=== PATIENT | female | born 1995 | race American Indian/Alaskan Native ===

== ENCOUNTER → 2023-08-20 12:02 | Outpatient (CLI) | payer OTHER, SELFPAY ==
[2023-08-22 20:31] LABS: AFP Value 65.7 ng/mL (.); Gest Age on Col Date 16.6 weeks (.); Insulin Dep Diabetes No (.); OSBR Risk 1IN 1218 (.); Results Report (.); Test Results *Screen Negative* (.)
== END ==
PROVIDERS: PCP Family Medicine; Referring Provider Family Medicine; Visit Provider Family Medicine
DX: Z34.00 Encounter for supervision of normal first pregnancy, unspecified trimester (principal)
CPT/HCPCS: 36415; 82105

== ENCOUNTER → 2023-09-10 11:57 | Outpatient (CLI) | payer OTHER, SELFPAY ==
--- NOTE | 2023-09-10 11:58 | DI.US.S_ITS ---
PROCEDURE: US OB >= 14 WEEKS FETUS INDICATIONS: anatomy OUTSIDE/PRIOR DATING DATA: Last menstrual period (LMP): 04/26/23. LMP-based estimated date of delivery (MARLEY): 01/31/24. First dating scan (date and location): Not available. Estimated date of delivery (MARLEY) from first dating scan: Not applicable. The calculations are made using the clinical MARLEY of 01/31/24. TECHNIQUE: Real-time scanning was performed of the fetus, with image documentation and biometric measurements. Endovaginal scanning: Not performed COMPARISON: None. FINDINGS: General: A single living intrauterine gestation is present. Presentation: Vertex. Placenta: Placental position is posterior , without previa. Amniotic fluid index: 9.6 cm, normal range is 5-24 cm. Single deepest vertical pocket is 3.1 cm. heart rate: 135 beats per minute. Maternal cervical canal: Closed and 3.0 cm long. Normal lower limit is 2.5 cm. biometrics: Biparietal diameter: 4.2 cm, 18 weeks four days Head circumference: 16.3 cm, 19 weeks one day Abdominal circumference: 13.9 cm, 19 weeks two days Femur length: 2.7 cm, 18 weeks 0 days Clinically estimated gestational age: 19 weeks four days Composite gestational age from present scan: 18 weeks five days Estimated weight and percentile: 255 g, 10th percentile Anatomic survey: Neuro: Ventricles are non-dilated at less than 10 mm. Cisterna magna is normal at 3-11 mm. Cerebellum is normal in size and morphology. Nuchal skin fold: Normal at less than 6 mm between 14-21 weeks gestational age. Face: Nose and lips, facial profile are normal. Spine: No evidence for spina bifida. Heart: 4-chambered heart is present, with normal ventricular outflow tracts. Diaphragm: Diaphragm is intact. Stomach: Left-sided stomach is present. Kidneys: No hydronephrosis. Normal is less than 5 mm in 2nd trimester, less than 7 mm in 3rd trimester. Cord: 3-vessel cord has orthotopic insertion. Bladder: Normal in size. Extremities: All 4 extremities identified. IMPRESSION: Single living intrauterine with a composite gestational age of 18 weeks five days, six days behind clinical age. Estimated weight at the 10th percentile. Slightly short femur, otherwise fairly symmetric growth. Correlate with parental stature. Visualized anatomy is normal. We strive to produce accurate, complete, and clear reports of imaging services. To assist us in improving patient care, this report was composed using standard report templates and voice recognition software. Therefore, it may contain abnormal punctuation, insertions and/or omissions. Occasional wrong-word or sound-alike substitutions may occur. Though we review the report and make efforts to correct it, we do recommend that the report be read carefully in proper context to recognize any text inaccuracies. Dictated by: Nemo Barrios M.D. on 09/10/2023 at 13:39 Approved by: Nemo Barrios M.D. on 09/10/2023 at 13:48
== END ==
PROVIDERS: PCP Family Medicine; Referring Provider Family Medicine; Visit Provider Family Medicine
DX: Z34.02 Encounter for supervision of normal first pregnancy, second trimester (principal); Z3A.18 18 weeks gestation of pregnancy
CPT/HCPCS: 76811

== ENCOUNTER → 2023-10-29 13:09 | Outpatient (CLI) | payer OTHER, SELFPAY ==
--- NOTE | 2023-10-29 13:10 | DI.US.S_ITS ---
PROCEDURE: US OB LIMITED INDICATIONS: EFW OUTSIDE/PRIOR DATING DATA: Last menstrual period (LMP): 04/26/2023. LMP-based estimated date of delivery (MARLEY): 01/31/2024. TECHNIQUE: Real-time scanning was performed of the fetus, with image documentation and biometric measurements. Biophysical profile was also obtained. Endovaginal scanning: No COMPARISON: None. FINDINGS: General: A single living intrauterine gestation is present. Presentation: Vertex. Placenta: Placental position is posterior , without previa. Amniotic fluid index: 17.4 cm, normal range is 5-24 cm. Single deepest vertical pocket is 5.1 cm. heart rate: 153 beats per minute. Maternal cervical canal: 3.3 cm long. Normal lower limit is 2.5 cm. biometrics: Biparietal diameter: 6.5 cm, 26 week 1 day Head circumference: 24.3 cm, 26 week 3 day Abdominal circumference: 22.1 cm, 26 week 4 day Femur length: 4.8 cm, 26 week 1 day Clinically estimated gestational age: 26 week 4 day Composite gestational age from present scan: 26 week 2 day Estimated weight and percentile: 929 g, 31 percentile IMPRESSION: Single live intrauterine consistent with a 26 week 2 day gestation by current ultrasound Approved by: Micha Burton M.D. on 10/29/2023 at 16:44
== END ==
PROVIDERS: PCP Family Medicine; Referring Provider Family Medicine; Visit Provider Family Medicine
DX: O36.5920 Maternal care for other known or suspected poor fetal growth, second trimester, not applicable or unspecified (principal); Z3A.26 26 weeks gestation of pregnancy
CPT/HCPCS: 76815

== ENCOUNTER → 2023-11-21 12:01 | Outpatient (CLI) | payer OTHER, SELFPAY ==
[2023-11-21 13:57] LABS: Add Manual Diff / Slide Review NO; Basophils Absolute Auto 0 /uL (0-100); Basophils Percent Auto 0.4 % (0-2); Eosinophils Absolute Auto 100 /uL (0-450); Eosinophils Percent Auto 0.9 % (2-4); Hemoglobin 10.9 g/dL (12.0-16.0); Lymphocytes Absolute Auto 1900 /uL (1100-4500); Lymphocytes Percent Auto 17.1 % (25-40); Mean Corpuscular Hemoglobin 31.1 PG (26-34); Mean Corpuscular Volume 91.4 fL (80-100); Monocytes Absolute Auto 600 /uL (0-900); Monocytes Percent Auto 5.8 % (3-14); Neutrophils Absolute Auto 8400 /uL (1500-7000); Neutrophils Percent Auto 75.8 % (50-75); Platelet Count 242 X10^3/uL (150-400); Red Blood Cell Count 3.51 X10^6/uL (4.0-5.2); Red Cell Distribution Width 14.1 % (11.6-14.8)
[2023-11-21 14:20] LABS: GTT (PREG) 1 Hour PP 50gm Dose 126 mg/dL (76-139)
== END ==
PROVIDERS: Referring Provider Family Medicine; Visit Provider Family Medicine
DX: Z34.00 Encounter for supervision of normal first pregnancy, unspecified trimester (principal)
CPT/HCPCS: 82950; 85025; 86850

== ENCOUNTER 2023-12-03 07:26 | Emergency (ER) | payer OTHER, SELFPAY ==
[2023-12-03 07:35] VITALS: BP 141/78; PULSE 88; RESP 16; TEMP 36.6; O2SAT 98; BMI 31.3
--- NOTE | 2023-12-03 07:56 | ED_ITS ---
HPI - Back Pain/Injury General Chief Complaint: Back Pain/Injury Stated Complaint: pain right glute/leg Time Seen by Provider: 12/03/23 07:49 Source: patient History of Present Illness HPI Narrative: Patient here for right gluteal pain for the past 3 days. It started about 2 weeks ago but worsened over the weekend. Has been taking Tylenol without relief. Denies any urinary complaints. No numbness tingling or weakness. Pain does not radiate. There is no hip pain. Pain is at the right side of the sacroiliac junction. Patient is [address] Valencia, OBGYN/family Medicine. She is being monitored for her blood pressure with prov ider. Blood pressure noted today at triage. Component may be pain related as well. Patient is . Denies any chest pain headache urinary changes, toe right upper quadrant pain Related Data Previous Rx's Medication Instructions Recorded vit no.95-ferrous 1 tab PO DAILY #90 tabs 08/17/23 fumarate 28 mg-folic acid 800 mcg tablet ( Multivitamins) cyclobenzaprine 5 mg tablet 5 mg PO BID PRN muscle spasm #20 12/03/23 tabs Allergies Allergy/AdvReac Type Severity Reaction Status Date / Time No Known Drug Allergies Allergy Unverified 12/03/23 07:40 Review of Systems Review of Systems Narrative: GENERAL: negative chills, fatigue, malaise, fever, sweats. HEENT: negative sinus pain, ear pain, sore throat RESPIRATORY: negative dyspnea, cough CARDIOVASCULAR: negative chest pain, palpitations GASTROINTESTINAL: negative nausea, vomiting, abdominal pain : negative dysuria, frequency, hematuria MUSCULOSKELETAL: Positive muscle or bony pain SKIN: negative rash, skin lesions NEUROLOGIC: negative weakness, numbness Patient History Medical History IUD complication (~08/2022) Dental crown present Migraine without aura Surgical History [place] teeth extracted Family History Mother Diabetes mellitus Father Hypertension Grandmother Ovarian cancer Family/Other Diabetes mellitus Social History marital status: number of children: 0 household members: spouse lives independently: Yes caregiver/support person: No housing: other (RV) pets and animals: Yes (1 large dog) education level: college (some college) occupational status: employed current occupational exposures/hazards: No (not since learning of ) special karen needs: No travel history: recent (domestic only) seatbelt use: always water heater temp set < 120 deg: Yes working smoke detector in home: Yes fire extinguisher in home: Yes carbon monox detector in home: Yes firearms in home: Yes firearms unloaded and locked: Yes do you feel safe at home: Yes Smoking Status: Former smoker Tobacco: How many years used: 3 second hand exposure: No alcohol intake: never substance use type: does not use during the past year weight has: remained stable well-balanced diet: rarely or never daily servings fruits/ve-1 caffeine: No Type(s) of exercise: walking and weight lifting Smoking Status: Former smoker Substance Use Type: does not use Exam Narrative Exam Narrative: GENERAL: in no distress, not toxic not dyspneic HEAD: Normocephalic. EYES: Pupils equal round ENT: Mucous membranes moist. NECK: Trachea midline. CARDIOVASCULAR: Regular rate and rhythm RESPIRATORY: Clear to auscultation. Breath sounds equal bilaterally. No wheezes, rales, or rhonchi. GASTROINTESTINAL: Abdomen soft, non-tender EXTREMITIES: No gross deformities. Reproducible sacral tenderness on the right side. Nontender hip. Sacral pain with straight leg raise on the left as well as the right. In supine position BACK: No flank tenderness. NEURO: AOx4. Clear speech no facial droop. Steady self gait no ataxia. Strong bilateral patellar reflexes light touch intact to bilateral legs and feet. Feet are exposed. Strong bilateral ankle flexion-extension SKIN: Warm and dry PSYCH: Not anxious, is cooperative Initial Vital Signs Initial Vital Signs: Vital Signs Temperature 97.8 F 12/03/23 07:35 Pulse Rate 88 12/03/23 07:35 Respiratory Rate 16 12/03/23 07:35 Blood Pressure 141/78 H 12/03/23 07:35 Pulse Oximetry 98 12/03/23 07:35 Oxygen Delivery Method Room Air 12/03/23 07:35 Course Vital Signs Vital signs: Vital Signs - 8 hr 12/03/23 07:35 12/03/23 08:00 Temperature 97.8 F Pulse Rate 88 Respiratory Rate 16 Blood Pressure 141/78 H 136/67 Pulse Oximetry 98 Oxygen Delivery Method Room Air MDM - Back Pain/Injury [facility] Narrative Medical decision making narrative: atient here for right gluteal pain for the past 3 days. It started about 2 weeks ago but worsened over the weekend. Has been taking Tylenol without relief. Denies any urinary complaints. No numbness tingling or weakness. Pain does not radiate. There is no hip pain. Pain is at the right side of the sacroiliac junction. Patient is [address] Valencia, OBGYN/family Medicine. She is being monitored for her blood pressure with provider. Blood pressure noted today at triage. Component may be pain related as well. Patient denies any chest pain headache urinary changes, toe right upper quadrant pain Patient is , no history of preeclampsia After history and exam contact OBGYN provider for medication management likely sacroiliac joint syndrome, also physical therapy. Review blood pressure management with provider as well. [facility] Medical records reviewed: November 28, 2023 OB visit Differential considered: Includes but not limited to sacroiliac joint syndrome, preeclampsia Lab Test results independently reviewed as above. Pertinent findings: Consultations: 8:15 a.m., sw dr augustin [facility] for dr valencia, recommends Flexeril 5 mg twice a day as needed for pain. Patient is take Tylenol 1 g every 8 hours. She will have office reach out to patient for follow up this week. Agrees with patient will likely need physical therapy Treatments: None indicated at this time Re-evaluations: 8:26 a.m.. Reviewed with patient my discussion with her primary care on-call treatment plans. Patient agrees. Blood pressure retaken 136/67. Please note previous blood pressure 141/78 was taken with patient wearing a sweatshirt, it was removed for repeat blood pressure measurement. Discussion: Appropriate for discharge home. Exam is reassuring. Repeat blood pressure reassuring. First blood pressure taken was with patient wearing a sweatshirt. Return precautions reviewed patient. Treatment plan discussed with on-call PCP/OBGYN and treatment plan agreeable with patient. Not toxic at discharge. Return precautions reviewed. She desires discharge home Diagnosis: Sacroiliac joint pain Discharge Plan Departure Patient Disposition: Home Clinical Impression: Sacro-iliac pain Instructions: DI Sacroiliac Joint Dysfunction Activity Restrictions/Additional Instructions: Please call your OBGYN office today for office appointment this week for re- evaluation and to schedule physical therapy for your sacroiliac joint d ysfunction. Work note has been provided for you. Prescription medication has been provided for you to help for the pain. This has been reviewed with your OBGYN provider. Please take Tylenol as we discussed for the pain. Return if worse if any questions or concerns Prescriptions: New cyclobenzaprine 5 mg tablet 5 mg PO BID PRN (Reason: muscle spasm) Qty: 20 0RF No Action PNV cmb#95-ferrous fumarate-FA [ Multivitamins] 28 mg iron- 800 mcg tablet 1 tab PO DAILY Qty: 90 1RF Referrals: ProviderOly [Primary Care Provider] - Stand Alone Forms: Patient Portal/API, Work Release Note
--- NOTE | 2023-12-03 07:58 | PC.NURSE ---
Patient 31 weeks 5 days . Has been having tailbone pain in and starting noticably on erick right glute pain sharp and shooting pain. No relief with tylenol, heat, ice or massage at home. Patient blood pressure elevated 141/78 in triage, Patient states she has been being monitored by OB, her blood pressures have been slowly trending up. Denies any headaches.
[2023-12-03 08:00] VITALS: BP 136/67
[2023-12-03 08:40] VITALS: BP 134/73; PULSE 83; RESP 20; TEMP 37; O2SAT 98
== END 2023-12-03 08:42 | disposition home or self-care (01) ==
PROVIDERS: Emergency Provider Emergency Medicine
DX: M53.3 Sacrococcygeal disorders, not elsewhere classified (principal)
CPT/HCPCS: 99281

== ENCOUNTER → 2024-01-09 09:43 | Outpatient (CLI) | payer OTHER, SELFPAY ==
[2024-01-10 10:19] LABS: Strep Grp B PCR NEG for Grp B Strep
== END ==
PROVIDERS: Visit Provider Family Medicine
DX: Z34.00 Encounter for supervision of normal first pregnancy, unspecified trimester (principal)
CPT/HCPCS: 87653

== ENCOUNTER 2024-01-27 15:35 | Observation (INO) | payer OTHER, SELFPAY ==
[2024-01-27 16:27] LABS: Add Manual Diff / Slide Review NO; Basophils Absolute Auto 0 /uL (0-100); Basophils Percent Auto 0.5 % (0-2); Eosinophils Absolute Auto 100 /uL (0-450); Eosinophils Percent Auto 0.7 % (2-4); Hematocrit 32.9 % (36-46); Hemoglobin 11.3 g/dL (12.0-16.0); Lymphocytes Absolute Auto 1500 /uL (1100-4500); Lymphocytes Percent Auto 15.2 % (25-40); Mean Corpuscular HGB Conc 34.3 % (30-36); Mean Corpuscular Hemoglobin 30.8 PG (26-34); Mean Corpuscular Volume 89.8 fL (80-100); Monocytes Absolute Auto 600 /uL (0-900); Monocytes Percent Auto 6.1 % (3-14); Neutrophils Absolute Auto 7500 /uL (1500-7000); Neutrophils Percent Auto 77.5 % (50-75); Platelet Count 229 X10^3/uL (150-400); Red Blood Cell Count 3.67 X10^6/uL (4.0-5.2); Red Cell Distribution Width 15.2 % (11.6-14.8); White Blood Cell Count 9.7 X10^3/uL (4.5-11.0)
[2024-01-27 16:38] LABS: Alanine Aminotransferase 20 IU/L (<35); Albumin 3.3 g/dL (3.5-5.0); Albumin Globulin Ratio 1.2 (1.0-2.8); Alkaline Phosphatase 89 U/L (38-126); Aspartate Aminotransferase 20 IU/L (14-36); Bilirubin Total 0.2 mg/dL (0.2-1.3); Blood Urea Nitrogen 16 mg/dL (7-17); Calcium 9.7 mg/dL (8.4-10.2); Carbon Dioxide 16 mmol/L (22-32); Chloride 112 mmol/L (98-107); Estimated Glomerular Filt Rate > 60 mL/min (>60); Globulin 2.8 g/dL (1.7-4.1); Glucose 94 mg/dL (70-100); HEMOLYSIS < 15 (0-50); Potassium 3.8 mmol/L (3.4-5.1); Sodium 135 mmol/L (137-145); Total Protein 6.1 g/dL (6.3-8.2); Uric Acid 4.7 mg/dL (2.5-6.2)
[2024-01-27 16:59] LABS: Protein (Total) Urine Random 21 mg/dL (0-12); Protein Creatinine Ratio Urine 0.79 GRAM/24H
[2024-01-27 17:42] LABS: Appearance Urine UA CLEAR; Bilirubin Urine UA NEGATIVE (NEGATIVE); Color Urine UA YELLOW; Glucose Urine UA NEGATIVE (Negative); Ketones Urine UA NEGATIVE (NEGATIVE); Leukocyte Esterase Urine UA TRACE (NEGATIVE); Nitrite Urine UA NEGATIVE (Negative); Occult Blood Urine UA NEGATIVE (Negative); Protein Urine UA NEGATIVE (Negative); Urobilinogen Urine UA 0.2 E.U./dL (0.2)
[2024-01-27 17:49] LABS: Bacteria Urine Few (2-10); RBC Urine 0-1/HPF (0-5/HPF); Urine Volume 10mL (spun); WBC Urine 1-5/HPF (0-5/HPF)
[2024-01-27 17:50] LABS: Culture Indicated Urine Cult Not Indicated; Squamous Epithelial Cell Urine 1-5 /HPF (0-5/HPF)
== END 2024-01-27 18:15 | disposition home or self-care (01) ==
PROVIDERS: Admitting Provider Obstetrics & Gynecology; Referring Provider Obstetrics & Gynecology; Visit Provider Obstetrics & Gynecology
DX: O16.3 Unspecified maternal hypertension, third trimester (principal); O36.8130 Decreased fetal movements, third trimester, not applicable or unspecified; Z3A.39 39 weeks gestation of pregnancy
CPT/HCPCS: 59025; 59050; 80053; 81001; 84550; 85025; G0378; G0379

== ENCOUNTER 2024-01-28 12:18 | Outpatient (CLI) | payer OTHER, SELFPAY | END 2024-01-28 13:10 | disposition home or self-care (01) | LOC: LABOR 12:32 → OB 01-29 12:29 | PROVIDERS: Referring Provider Family Medicine; Visit Provider Family Medicine | DX: O26.893 Other specified pregnancy related conditions, third trimester (principal); R06.02 Shortness of breath; Z3A.39 39 weeks gestation of pregnancy | CPT/HCPCS: 59025; G0378; G0379 ==

== ENCOUNTER 2024-01-28 15:56 | Inpatient (IN) | payer OTHER, SELFPAY ==
[2024-01-28 17:02] LABS: Add Manual Diff / Slide Review NO; Basophils Absolute Auto 100 /uL (0-100); Basophils Percent Auto 0.7 % (0-2); Eosinophils Absolute Auto 100 /uL (0-450); Eosinophils Percent Auto 0.8 % (2-4); Hematocrit 34.1 % (36-46); Hemoglobin 11.5 g/dL (12.0-16.0); Lymphocytes Absolute Auto 1800 /uL (1100-4500); Lymphocytes Percent Auto 16.8 % (25-40); Mean Corpuscular HGB Conc 33.7 % (30-36); Mean Corpuscular Hemoglobin 30.7 PG (26-34); Mean Corpuscular Volume 91.3 fL (80-100); Monocytes Absolute Auto 600 /uL (0-900); Monocytes Percent Auto 5.4 % (3-14); Neutrophils Absolute Auto 8000 /uL (1500-7000); Neutrophils Percent Auto 76.3 % (50-75); Platelet Count 244 X10^3/uL (150-400); Red Blood Cell Count 3.74 X10^6/uL (4.0-5.2); Red Cell Distribution Width 15.4 % (11.6-14.8); White Blood Cell Count 10.5 X10^3/uL (4.5-11.0)
[2024-01-28 17:03] LABS: Alanine Aminotransferase 24 IU/L (<35); Albumin 3.4 g/dL (3.5-5.0); Albumin Globulin Ratio 1.1 (1.0-2.8); Alkaline Phosphatase 98 U/L (38-126); Aspartate Aminotransferase 24 IU/L (14-36); BUN Creatinine Ratio 18.3 (6-22); Bilirubin Total 0.2 mg/dL (0.2-1.3); Blood Urea Nitrogen 15 mg/dL (7-17); Calcium 9.7 mg/dL (8.4-10.2); Carbon Dioxide 15 mmol/L (22-32); Chloride 112 mmol/L (98-107); Estimated Glomerular Filt Rate > 60 mL/min (>60); Glucose 127 mg/dL (70-100); HEMOLYSIS < 15 (0-50); Potassium 3.6 mmol/L (3.4-5.1); Sodium 134 mmol/L (137-145); Total Protein 6.4 g/dL (6.3-8.2)
--- NOTE | 2024-01-28 17:18 | PM.OBHP.IH.1 ---
OB HPI Date/Time Date of admission: 01/28/24 Date Patient Seen: 01/28/24 Time Patient Seen: 17:18 History of Present Condition Chief complaint: induction MARLEY Calculator Estimated Delivery Date Method Current WG Current Estimate 01/31/24 LMP (Certain) 39w 4d Estimated Gestational Age (weeks): 39w4d : 1 Para: 0 Narrative: 28yo at 39w4d here due to SOB in the setting of recently elevated BPs. The pt was seen in L&D yesterday due to headache and swelling. Her initial BP was elevated, but subsequent readings were all in normal range. Her labs showed an elevated Pr/Cr. She was ultimately discharged home with close f/u. The pt then returned to L&D today due to SOB. She reports feeling more SOB when moving around. She denies any headaches, vision changes, RUQ today. Her swelling is actually improved. The pts has been otherwise uncomplicated. She had FGR at the 10th percentile on anatomy u/s, however repeat u/s showed growth at the 31st percentile. care: good care, initiated at week # and pounds weight gain Dating criteria OB: LMP confirmed by 1st trimester US Ultrasounds: normal 1st trimester US and normal mid trimester US (FGR 10th percentile on anatomy u/s, repeat u/s normal growth) Obstetrical complications: preeclampsia Medical complications OB: none Indications Indication for induction OB: gestational HTN/pre-eclampsia Preadmission Labs Last OB Lab Results: Blood Type Pending 01/28/24 16:35 Antibody Screen Negative 11/21/23 13:19 Hct 34.1 % (36-46) L 01/28/24 16:35 Hgb 11.5 g/dL (12.0-16.0) L 01/28/24 16:35 Glucose 1 Hr 50 gm 126 mg/dL (76-139) 11/21/23 13:19 Group B Strep (PCR) Neg for grp b strep 01/09/24 09:40 -: Urine: negative Genetic Screens: Cell-free DNA: Normal and Alpha-fetoprotein: Normal External Labs Blood type OB HPI: A (+) positive -: Antibody screen: negative, HBsAG: negative, HIV: negative, RPR/VDLR: negative, Chlamydia screen: negative, Gonorrhea screen: negative and Urine: negative -: Rubella: immune and Varicella: immune HCAB: negative Evaluation Evaluation Baseline heart rate: 135 Variability: Moderate (11-25) monitor accelerations: Present Monitor Decelerations: Absent Dilation (cm): 1 Effacement (%): 50 Dilation: 1-2 cm Effacement: 40-50% station: -1 Position of cervix: mid Consistency: soft Diaz score: 7 PFSH Medical History IUD complication (~08/2022) Dental crown present Migraine without aura Surgical History [place] teeth extracted Family History Mother Diabetes mellitus Father Hypertension Grandmother Ovarian cancer Family/Other Diabetes mellitus Social History marital status: number of children: 0 household members: spouse lives independently: Yes caregiver/support person: No housing: other (RV) pets and animals: Yes (1 large dog) education level: college (some college) occupational status: employed current occupational exposures/hazards: No (not since learning of ) special karen needs: No travel history: recent (domestic only) seatbelt use: always water heater temp set < 120 deg: Yes working smoke detector in home: Yes fire extinguisher in home: Yes carbon monox detector in home: Yes firearms in home: Yes firearms unloaded and locked: Yes do you feel safe at home: Yes Smoking Status: Never smoker Tobacco: How many years used: 3 second hand exposure: No alcohol intake: never substance use type: does not use during the past year weight has: remained stable well-balanced diet: rarely or never daily servings fruits/ve-1 caffeine: No Type(s) of exercise: walking and weight lifting Meds Home Medications and Allergies Home Medications Medication Instructions Recorded Confirmed Type vit no.95-ferrous 1 tab PO DAILY #90 tabs 08/17/23 01/23/24 Rx fumarate 28 mg-folic acid 800 mcg tablet ( Multivitamins) cyclobenzaprine 5 mg tablet 5 mg PO BID PRN muscle spasm #20 12/03/23 01/23/24 Rx tabs Allergies Allergy/AdvReac Type Severity Reaction Status Date / Time No Known Drug Allergies Allergy Unverified 01/23/24 09:41 OB Exam Resp Effort & Inspection: normal respiratory effort Auscultation: clear to auscultation bilaterally Cardio Rate: regular rate Rhythm: regular rhythm Heart Sounds: S1 normal, S2 normal and no murmurs GI Inspection: non-distended Palpation: Yes soft and No tender Presentation: vertex Objective Labs 01/28/24 16:35 01/28/24 16:35 Labs: Laboratory Results - last 24 hr 01/28/24 16:35 WBC 10.5 RBC 3.74 L Hgb 11.5 L Hct 34.1 L MCV 91.3 MCH 30.7 MCHC 33.7 RDW 15.4 H Plt Count 244 Neut % (Auto) 76.3 H Lymph % (Auto) 16.8 L [place] % (Auto) 5.4 Eos % (Auto) 0.8 L Baso % (Auto) 0.7 Neut # (Auto) 8000 H Lymph # (Auto) 1800 [place] # (Auto) 600 Eos # (Auto) 100 Baso # (Auto) 100 Sodium 134 L Potassium 3.6 Chloride 112 H Carbon Dioxide 15 L BUN 15 Creatinine 0.82 Estimated GFR > 60 BUN/Creatinine Ratio 18.3 Glucose 127 H Calcium 9.7 Total Bilirubin 0.2 AST 24 ALT 24 Alkaline Phosphatase 98 Total Protein 6.4 Albumin 3.4 L Globulin 3.0 Albumin/Globulin Ratio 1.1 Assessment and Plan Assessment and Plan Assessment and Plan narrative: 28yo at 39w4d here with SOB, found to have consistently elevated BPs. In the setting of elevated Pr/Cr yesterday, diagnosed with pre-eclampsia without severe features. No evidence of HELLP on labs. She will be admitted for induction due to her term gestational age. Pt currently asymptomatic. GBS negative, Rh positive. Diaz score 7. - Due to staffing, cannot immediately initiate IOL. Plan for q2hr BP checks and q4hr NST until able to start induction. NST reactive currently. If BP to severe range with initiate MgSO4 and transfer pt if unable to initiate IOL immediately. - 100mg PO Labetalol now for elevated BPs. - Cervidil for IOL once able to based on staffing. - GBS negative, no prophylaxis indicated. Time-Based Coding :: [TOTAL MINUTES] spent with patient and on the chart (including review of chart, obtaining history, exam, reviewing outside data, placing orders, documenting exam and treatment plan, and counseling patient) on [DATE].
[2024-01-28 17:23] VITALS: BP 146/83
[2024-01-28 18:45] LABS: Protein (Total) Urine Random 40 mg/dL (0-12); Protein Creatinine Ratio Urine 0.64 GRAM/24H
[2024-01-28 21:48] VITALS: BP 159/89; PULSE 84
[2024-01-28] MEDS: LABETALOL 100 MG TABLET PO (21:48)
[2024-01-28] MEDS: CALCIUM CARBONATE 500 MG TAB 1000 MG PO (22:18)
[2024-01-29] MEDS: DINOPROSTONE VAG (CERVIDIL) 10 MG VAG (07:41)
--- NOTE | 2024-01-29 08:15 | PM.OBPNLAB ---
Date/Time Date Patient Seen: 01/29/24 Time Patient Seen: 08:00 Pain Control Pain control: tolerating well Pelvic Exam Dilation (cm): 1 Effacement (%): 50 station: -1 Amniotic membrane status: Intact Contractions Contraction pattern: Irregular Status status: Category l Heart Rate Baseline: 125 Monitor Accelerations: Present Monitor Decelerations: Absent Monitor Variability: Moderate Assessment and Plan Comments: 28yo at 39w4d here for IOL due to pre-eclampsia without severe features. No evidence of HELLP on admission labs. BPs staying under 160/110, received single dose of PO Labetalol yesterday. GBS negative, Rh positive. - Able to start IOL with placement of Cervidil this morning. Will leave in place for 12hrs unless pt progresses into active labor - GBS negative, no prophylaxis indicated - FHT reassuring - Epidural for pain control if desired
[2024-01-29] MEDS: ACETAMINOPHEN 325 MG TABLET 650 MG PO (20:25)
[2024-01-29 20:36] LABS: Add Manual Diff / Slide Review NO; Basophils Absolute Auto 0 /uL (0-100); Basophils Percent Auto 0.4 % (0-2); Eosinophils Absolute Auto 100 /uL (0-450); Eosinophils Percent Auto 1.1 % (2-4); Hematocrit 32.1 % (36-46); Hemoglobin 10.9 g/dL (12.0-16.0); Lymphocytes Absolute Auto 1800 /uL (1100-4500); Lymphocytes Percent Auto 17.8 % (25-40); Mean Corpuscular Hemoglobin 30.9 PG (26-34); Mean Corpuscular Volume 90.8 fL (80-100); Monocytes Absolute Auto 700 /uL (0-900); Monocytes Percent Auto 7.2 % (3-14); Neutrophils Absolute Auto 7400 /uL (1500-7000); Neutrophils Percent Auto 73.5 % (50-75); Platelet Count 234 X10^3/uL (150-400); Red Blood Cell Count 3.54 X10^6/uL (4.0-5.2); Red Cell Distribution Width 15.7 % (11.6-14.8); White Blood Cell Count 10.1 X10^3/uL (4.5-11.0)
[2024-01-29 20:49] LABS: Alanine Aminotransferase 21 IU/L (<35); Albumin 3.1 g/dL (3.5-5.0); Alkaline Phosphatase 88 U/L (38-126); Aspartate Aminotransferase 23 IU/L (14-36); BUN Creatinine Ratio 19.5 (6-22); Bilirubin Total 0.3 mg/dL (0.2-1.3); Blood Urea Nitrogen 16 mg/dL (7-17); Calcium 9.9 mg/dL (8.4-10.2); Carbon Dioxide 18 mmol/L (22-32); Chloride 111 mmol/L (98-107); Estimated Glomerular Filt Rate > 60 mL/min (>60); Globulin 3.2 g/dL (1.7-4.1); Glucose 103 mg/dL (70-100); HEMOLYSIS < 15 (0-50); Potassium 3.8 mmol/L (3.4-5.1); Sodium 135 mmol/L (137-145); Total Protein 6.3 g/dL (6.3-8.2)
[2024-01-29 22:36] VITALS: BP 155/82; PULSE 75
[2024-01-29] MEDS: LABETALOL 100 MG TABLET PO (22:36)
--- NOTE | 2024-01-29 23:04 | PM.OBPNLAB ---
Date/Time Date Patient Seen: 01/29/24 Time Patient Seen: 23:04 Pain Control Pain control: tolerating well Pelvic Exam Dilation (cm): 1.5 Effacement (%): 50 station: -1 Amniotic membrane status: Intact Contractions Contraction frequency (min): 5 Contraction pattern: Irregular Status status: Category l Heart Rate Baseline: 145 Monitor Accelerations: Present Monitor Decelerations: Absent Monitor Variability: Moderate Assessment and Plan Comments: 28yo at 39w4d here for IOL due to pre-eclampsia without severe features. No evidence of HELLP. BPs variable, single reading > 160 after pt was upset and crying. Received single dose of PO Labetalol yesterday, again this evening. Very minimal cervical change after cervidil in for 12hrs. After informed consent ferrara catheter placed with speculum, inflated with 60cc of NS. GBS negative, Rh positive. - Ferrara to remain in for up to 12hrs with gentle traction. Plan to start low dose pitocin after 1hr if not zaheer regularly. - FHT reassuring - Epidural for pain control if desired - Continue to monitor BP closely
[2024-01-29] MEDS: fentaNYL 100 MCG/2 ML INJ 50 MCG IV (23:49)
[2024-01-30] MEDS: OXYTOCIN PREMIX 30 UNIT/500 ML PLAST..BAG IV (05:17)
--- NOTE | 2024-01-30 08:38 | PM.OBPNLAB ---
Date/Time Date Patient Seen: 01/30/24 Time Patient Seen: 08:00 Pain Control Pain control: tolerating well Pelvic Exam Dilation (cm): 4 Effacement (%): 50 station: -1 Amniotic membrane status: Ruptured Contractions Contraction frequency (min): 5 Contraction pattern: Irregular Status status: Category l Heart Rate Baseline: 150 Monitor Accelerations: Absent Monitor Decelerations: Absent Monitor Variability: Moderate Assessment and Plan Comments: 28yo at 39w5d here for IOL due to pre-eclampsia without severe features. No evidence of HELLP. BPs variable, single reading > 160 after pt was upset and crying. Received two doses of PO Labetalol thus far. Received cervidil followed by ferrara catheter. Ferrara fell out, now on pitocin. After informed consent, AROM performed with clear fluid present. GBS negative, Rh positive. - Continue pitocin, titrate as tolerated - FHT reassuring - Epidural for pain control if desired - Continue to monitor BP closely
--- NOTE | 2024-01-30 14:33 | PM.AN.REGBLK ---
Regional Block Pre-procedure Procedure: Continuous Lumbar Epidural for L&D (with dural puncture and intrathecal bolus) Attending OB provider: Pattie Ornelas PMH/ROS narrative: 28yo with pre-eclampsia and HTN full-term in labor requesting epidural. See pre-anesthesia evaluation for further details. ASA Class: II Labs: Hct 32.1 % (36-46) L 01/29/24 20:16 Plt Count 234 X10^3/uL (150-400) 01/29/24 20:16 Medications: Current Medications Generic Name Dose Route Start Last Admin Trade Name Freq PRN Reason Stop Dose Admin Acetaminophen 650 mg 01/29/24 20:14 01/29/24 20:25 Acetaminophen 325 Mg Tablet PO 650 mg Q6HR PRN Administration Fever/Mild Pain (1-3) Calcium Carbonate 1,000 mg 01/28/24 16:32 01/28/24 22:18 Calcium Carbonate 500 Mg Tab PO 1,000 mg Q2HR PRN Administration Dyspepsia Carboprost Tromethamine 250 mcg 01/28/24 16:32 Carboprost 250 Mcg/Ml Ampul IM Q90M PRN Bleeding Diphenhydramine HCl 25 mg 01/30/24 14:31 Diphenhydramine 50 Mg/Ml Vial IV Q10M PRN Pruritis Ephedrine Sulfate 10 mg 01/30/24 14:31 Ephedrine 50 Mg/Ml Vial IV Q5M PRN Blood pressure decrease more than 20% of baseline. Fentanyl 50 mcg 01/28/24 16:32 01/29/24 23:49 Fentanyl 100 Mcg/2 Ml Inj IV 50 mcg Q1H PRN Administration Pain, Moderate (4-6) Oxytocin/Lactated Ringer's 30 unit in 500 mls @ 200 mls/hr 01/28/24 16:32 Oxytocin Premix IV CONT PRN Bleeding Protocol Tranexamic Acid 1,000 mg/ 100 mls @ 600 mls/hr 01/28/24 16:32 Sodium Chloride IV NOW PRN Bleeding Oxytocin/Lactated Ringer's 30 unit in 500 mls @ 2 mls/hr 01/28/24 16:45 01/30/24 05:17 Oxytocin Premix IV 2 milliunit/min TITRATE АЛЕКСАНДР 2 mls/hr Administration Protocol 2 MILLIUNIT/MIN FENT 2MCG/ML BUPIV 0.125% EPI 200 mcg in 100 mls @ 6 mls/hr 01/30/24 14:45 Fentanyl/Bupiv/Ns 2mcg/Ml - 0.125% EPIDURAL CONT АЛЕКСАНДР Lidocaine HCl 20 ml 01/28/24 16:32 Lidocaine 1% 20 Ml INJ INTRA-OP PRN Post Delivery Methylergonovine Maleate 0.2 mg 01/28/24 16:32 Methylergonovine 0.2 Mg Tablet PO Q6HR PRN Heavy Bleeding Methylergonovine Maleate 0.2 mg 01/28/24 16:32 Methylergonovine 0.2 Mg/Ml Vial IM NOW PRN Bleeding Mineral Oil 30 ml 01/28/24 16:32 Mineral Oil 30 Ml Udc TOP PRN PRN Version Misoprostol 800 mcg 01/28/24 16:32 Misoprostol 200 Mcg Tablet NH NOW PRN Bleeding Misoprostol 400 mcg 01/28/24 16:32 Misoprostol 200 Mcg Tablet SL NOW PRN Bleeding Nalbuphine HCl 2.5 mg 01/30/24 14:31 Nalbuphine 20 Mg/Ml Ampul IV Q10M PRN Pruritis Naloxone HCl 0.2 mg 01/28/24 16:32 Naloxone 0.4 Mg/Ml Vial IV Q2MIN PRN Opiate Reversal Ondansetron HCl 4 mg 01/28/24 16:32 Ondansetron 4 Mg/2 Ml Inj IV Q4HR PRN Nausea And Vomiting Oxytocin 10 unit 01/28/24 16:32 Oxytocin 10 Unit/Ml Vial IM NOW PRN Bleeding Allergies: Allergies Allergy/AdvReac Type Severity Reaction Status Date / Time No Known Drug Allergies Allergy Verified 01/28/24 17:33 Procedure Insertion date: 01/30/24 Insertion time: 14:09 Prep/Local: 1% lidocaine (Chloraprep) Interspace: L3-4 Patient position: sitting Needle: 18 gauge Hustead (22g 5 Pencan needle for dural puncture) Loss of resistance with: saline FAY at (cm): 5 Catheter placed at SKIN (cm): 12 Catheter in SPACE (cm): 7 Insertion: Yes CSF, No Blood, Yes Paresthesia with insertion, No Paresthesia with injection and No Test dose reaction Initial Medications TEST DOSE time: 14:10 TEST DOSE: 1.5% lidocaine with epinephrine 1:200k (mL): 3 BOLUS DOSE time: 14:11 BOLUS DOSE (mL): 2 BOLUS DOSE med: other (2 ml same as test dose; 14:09 intrathecal dose of 0.5 ml 0.75% Marcaine in dextrose) Infusion INFUSION: 0.125% bupivacaine and with fentanyl 2 mcg/mL Initial rate (mL/hr): 8 Subsequent interventions: FAY at 4.5 cm; only able to chart whole numbers. Pt's epidural space is relatively shallow. Epidural infusion started at 14:24. Pt rates pain 0/10 after epidural placement. 15:59 - Pt became very uncomfortable pretty quickly; it sounds like the intrathecal dose wore off and the epidural is not working as well. She reports central and some left-sided pain. Able to move BLE. Bolus given of 2% lidocaine 10 ml and epidural infusion increased to 10 ml/hr. ZULEYKA 16:22 - Followed up with pt. She reports contractions are slightly shorter but remain painful and is grimacing with contractions. Discussed with pt that the epidural does not appear to be working well and I recommend replacing it. Pt is reluctant, but she is not getting adequate pain relief and therefore agrees to do so. ZULEYKA Post-procedure Anesthesia date START: 01/30/24 Anesthesia time START: 14:01 Anesthesia date END: 01/30/24 Anesthesia time END: 16:33 Post-procedure Anesthesia Assessment: Yes Anesthesia complications (Failed epidural; catheter had slipped out to 8 cm. )
--- NOTE | 2024-01-30 16:34 | PM.OBPNLAB ---
Date/Time Date Patient Seen: 01/30/24 Time Patient Seen: 13:00 Pain Control Pain control: other (nitrous oxide) Pelvic Exam Dilation (cm): 4 Effacement (%): 50 station: -1 Amniotic membrane status: Ruptured Contractions Pitocin rate (mU/min): 19 Contraction frequency (min): 4 Contraction pattern: Irregular Intrauterine tone measurement: 205 Status status: Category l Heart Rate Baseline: 140 Monitor Accelerations: Present Monitor Decelerations: Absent Monitor Variability: Moderate Assessment and Plan Comments: 28yo at 39w5d here for IOL due to pre-eclampsia without severe features. No evidence of HELLP. BPs variable, single reading > 160 after pt was upset and crying. Received two doses of PO Labetalol thus far. Received cervidil followed by ferrara catheter. Ferrara fell out, now on pitocin with AROM. No significant cervical change and pitocin to 19 with frequent contractions on monitoring. IUPC placed to allow for better titration of pitocin. - Continue pitocin, titrate as tolerated - FHT reassuring - Epidural for pain control if desired - Continue to monitor BP closely
--- NOTE | 2024-01-30 16:58 | PM.AN.REGBLK ---
Regional Block <Josette Falcon, DO - Last Filed: 01/31/24 13:20> Pre-procedure Procedure: Continuous Lumbar Epidural for L&D (with dural puncture) Attending OB provider: Pattie VILLAGARN/MIYA narrative: See prior anesthesia evaluation and note. It appears first epidural slipped out from 11 cm to 8 cm and was minimally working. ASA Class: II Labs: Hct 32.1 % (36-46) L 01/29/24 20:16 Plt Count 234 X10^3/uL (150-400) 01/29/24 20:16 Medications: Current Medications Generic Name Dose Route Start Last Admin Trade Name Freq PRN Reason Stop Dose Admin Acetaminophen 650 mg 01/29/24 20:14 01/29/24 20:25 Acetaminophen 325 Mg Tablet PO 650 mg Q6HR PRN Administration Fever/Mild Pain (1-3) Butorphanol Tartrate 0.5 mg 01/30/24 14:32 Butorphanol 1 Mg/Ml Vial IV 01/31/24 14:33 Q3HR PRN PRURITUS Calcium Carbonate 1,000 mg 01/28/24 16:32 01/28/24 22:18 Calcium Carbonate 500 Mg Tab PO 1,000 mg Q2HR PRN Administration Dyspepsia Carboprost Tromethamine 250 mcg 01/28/24 16:32 Carboprost 250 Mcg/Ml Ampul IM Q90M PRN Bleeding Diphenhydramine HCl 25 mg 01/30/24 14:31 Diphenhydramine 50 Mg/Ml Vial IV Q10M PRN Pruritis Diphenhydramine HCl 25 mg 01/30/24 14:32 Diphenhydramine 50 Mg/Ml Vial IV 01/31/24 14:33 Q3HR PRN PRURITUS Ephedrine Sulfate 10 mg 01/30/24 14:31 Ephedrine 50 Mg/Ml Vial IV Q5M PRN Blood pressure decrease more than 20% of baseline. Fentanyl 50 mcg 01/28/24 16:32 01/29/24 23:49 Fentanyl 100 Mcg/2 Ml Inj IV 50 mcg Q1H PRN Administration Pain, Moderate (4-6) Oxytocin/Lactated Ringer's 30 unit in 500 mls @ 200 mls/hr 01/28/24 16:32 Oxytocin Premix IV CONT PRN Bleeding Protocol Tranexamic Acid 1,000 mg/ 100 mls @ 600 mls/hr 01/28/24 16:32 Sodium Chloride IV NOW PRN Bleeding Oxytocin/Lactated Ringer's 30 unit in 500 mls @ 2 mls/hr 01/28/24 16:45 01/30/24 05:17 Oxytocin Premix IV 2 milliunit/min TITRATE АЛЕКСАНДР 2 mls/hr Administration Protocol 2 MILLIUNIT/MIN FENT 2MCG/ML BUPIV 0.125% EPI 200 mcg in 100 mls @ 6 mls/hr 01/30/24 14:45 Fentanyl/Bupiv/Ns 2mcg/Ml - 0.125% EPIDURAL CONT АЛЕКСАНДР Lidocaine HCl 20 ml 01/28/24 16:32 Lidocaine 1% 20 Ml INJ INTRA-OP PRN Post Delivery Methylergonovine Maleate 0.2 mg 01/28/24 16:32 Methylergonovine 0.2 Mg Tablet PO Q6HR PRN Heavy Bleeding Methylergonovine Maleate 0.2 mg 01/28/24 16:32 Methylergonovine 0.2 Mg/Ml Vial IM NOW PRN Bleeding Metoclopramide HCl 10 mg 01/30/24 14:32 Metoclopramide 10 Mg/2 Ml Inj IV 01/31/24 14:32 Q4H PRN Nausea Mineral Oil 30 ml 01/28/24 16:32 Mineral Oil 30 Ml Udc TOP PRN PRN Version Misoprostol 800 mcg 01/28/24 16:32 Misoprostol 200 Mcg Tablet [place] NOW PRN Bleeding Misoprostol 400 mcg 01/28/24 16:32 Misoprostol 200 Mcg Tablet SL NOW PRN Bleeding Nalbuphine HCl 2.5 mg 01/30/24 14:31 Nalbuphine 20 Mg/Ml Ampul IV Q10M PRN Pruritis Naloxone HCl 0.2 mg 01/28/24 16:32 Naloxone 0.4 Mg/Ml Vial IV Q2MIN PRN Opiate Reversal Ondansetron HCl 4 mg 01/28/24 16:32 Ondansetron 4 Mg/2 Ml Inj IV Q4HR PRN Nausea And Vomiting Ondansetron HCl 4 mg 01/30/24 14:32 Ondansetron 4 Mg/2 Ml Inj IV 01/31/24 14:32 Q6HR PRN Nausea Oxytocin 10 unit 01/28/24 16:32 Oxytocin 10 Unit/Ml Vial IM NOW PRN Bleeding Allergies: Allergies Allergy/AdvReac Type Severity Reaction Status Date / Time No Known Drug Allergies Allergy Verified 01/28/24 17:33 --: Pt complaining of pressure with each contraction. Bolus of 10cc sterile saline mixed with 100mcg fentanyl given via epidural at 2105. Infusion increased to 12cc/hr. 2140 no difference in pressure with contraction. 10cc 0.25% bupivicaine given. Relief with bolus. 2314 10ml 0.25% bupivicaine given for return of contraction pain 0140 4cc 0.25% bupivicaine bolus 7cc bupivicaine added to remaider of bupiv/fent infusion bag approximatley 40cc 0340 10cc bolus 0.25% bupivicaine 20cc 0.25% bupiv added to 100cc bag of bupiv/fent 0645 Pt pushing and comfortable Procedure Insertion date: 01/30/24 Insertion time: 16:45 Prep/Local: 1% lidocaine (Chloraprep) Interspace: L3-4 Patient position: sitting Needle: 18 gauge Hustead (22g 5 Pencan for dural puncture) Loss of resistance with: saline FAY at (cm): 4 Catheter placed at SKIN (cm): 14 Catheter in SPACE (cm): 10 Insertion: No CSF, No Blood, No Paresthesia with insertion, No Paresthesia with injection and No Test dose reaction Initial Medications TEST DOSE time: 16:46 TEST DOSE: 1.5% lidocaine with epinephrine 1:200k (mL): 3 BOLUS DOSE time: 16:44 BOLUS DOSE (mL): 12 BOLUS DOSE med: other (10 ml epidural bolus of lidocaine 2% prior to epidural catheter placement; test dose and small bolus of lido+epi after catheter placed. ) Infusion INFUSION: 0.125% bupivacaine and with fentanyl 2 mcg/mL Initial rate (mL/hr): 10 Subsequent interventions: Epidural infusion restarted at 16:55. Pt rates pain 0/10; able to move BLE. Post-procedure Anesthesia date START: 01/30/24 Anesthesia time START: 16:34 Anesthesia date END: 01/31/24 Anesthesia time END: 07:30 Post-procedure Anesthesia Assessment: Yes CV function: HR/BP stable, Yes Resp function: RR/sat/airway adequate, Yes Post-op hydration adequate, Yes Pain control adequate, Yes Nausea & vomiting absent, Yes Temperature > 36 C, Yes Mental status appropriate and No Anesthesia complications <Maia Broussard CRNA - Last Filed: 02/01/24 10:48> Pre-procedure --: Pt complaining of pressure with each contraction. Bolus of 10cc sterile saline mixed with 100mcg fentanyl given via epidural at 2105. Infusion increased to 12cc/hr. 2140 no difference in pressure with contraction. 10cc 0.25% bupivicaine given. Relief with bolus. 1114 10ml 0.25% bupivicaine given for return of contraction pain 0140 4cc 0.25% bupivicaine bolus 7cc bupivicaine added to remaider of bupiv/fent infusion bag approximatley 40cc 0340 10cc bolus 0.25% bupivicaine 20cc 0.25% bupiv added to 100cc bag of bupiv/fent 0645 Pt pushing and comfortable
[2024-01-30] MEDS: LACTATED RINGERS 1,000 ML 100 ML IV (18:33)
--- NOTE | 2024-01-30 19:05 | PM.OBPNLAB ---
Date/Time Date Patient Seen: 01/30/24 Time Patient Seen: 19:05 Pain Control Pain control: epidural Pelvic Exam Dilation (cm): 6 Effacement (%): 90 station: 0 Amniotic membrane status: Ruptured Contractions Pitocin rate (mU/min): 26 Contraction frequency (min): 3 Contraction pattern: Irregular Intrauterine tone measurement: 210 Status status: Category l Heart Rate Baseline: 145 Monitor Accelerations: Present Monitor Decelerations: Absent Monitor Variability: Moderate Assessment and Plan Comments: 28yo at 39w5d here for IOL due to pre-eclampsia without severe features. No evidence of HELLP. BPs variable, single reading > 160 after pt was upset and crying. Received two doses of PO Labetalol thus far. Received cervidil followed by ferrara catheter. Ferrara fell out, now on pitocin with AROM. No significant cervical change and pitocin to 19 with frequent contractions on monitoring. IUPC placed to allow for better titration of pitocin. Now with cervical change. - Continue pitocin, titrate as tolerated - FHT reassuring - Epidural for pain control working well - Continue to monitor BP closely
[2024-01-30] MEDS: FENT 2MCG/ML BUPIV 0.125% EPI 200 MCG/100 ML PLAST..BAG 6 MCG EPIDURAL (20:27)
[2024-01-31] MEDS: AMPICILLIN 2,000 MG in SODIUM CHLORIDE 0.9% 100 ML 200 MG IV ×4 (04:53→23:19)
--- NOTE | 2024-01-31 05:06 | PM.OBPNLAB ---
Date/Time Date Patient Seen: 01/31/24 Time Patient Seen: 05:06 Pain Control Pain control: epidural Pelvic Exam Dilation (cm): 10 Effacement (%): 100 station: +1 Amniotic membrane status: Ruptured Contractions Pitocin rate (mU/min): 13 Contraction frequency (min): 3 Contraction pattern: Irregular Intrauterine tone measurement: 170 Status status: Category ll Heart Rate Baseline: 150 Monitor Accelerations: Absent Monitor Decelerations: Late and Variable Monitor Variability: Moderate Assessment and Plan Comments: 28yo at 39w5d here for IOL due to pre-eclampsia without severe features. No evidence of HELLP. BPs overall in acceptable range, rarely to severe range with instigation (crying, severe pain). Received two doses of PO Labetalol first 2 nights of IOL. Received cervidil followed by ferrara catheter. Ferrara fell out, now on pitocin with AROM. IUPC placed to allow for better titration of pitocin. Pt slowly progressed, now to complete dilation. Pt with persistently elevated temperature. No tachycardia, abnormal smelling amniotic fluid, abdominal tenderness (difficult to assess due to epidural) as secondary characteristic for chorioamnionitis. - Start ampicillin, gentamicin for persistent maternal fever, however not formally diagnosing with chorio at this time - Continue pitocin, titrate as tolerated - FHT with intermittent late and variable decels. Still with adequate variability between contractions. Safe to proceed cautiously proceed with pushing. Discussed with pt if without good descent due to slow labor progress or if FHT deteriorating will need to proceed with primary - Epidural for pain control working well - Continue to monitor BP closely
[2024-01-31] MEDS: ACETAMINOPHEN 325 MG TABLET 650 MG PO ×3 (05:07→23:19)
[2024-01-31] MEDS: GENTAMICIN 480 MG in SODIUM CHLORIDE 0.9% 100 ML 113.45 MG IV (05:24)
[2024-01-31] MEDS: LIDOCAINE 1% 20 ML INJ (07:45)
[2024-01-31] MEDS: TRANEXAMIC ACID 1,000 MG in SODIUM CHLORIDE 0.9% 100 ML 200 MG IV (07:45)
[2024-01-31] MEDS: CARBOPROST 250 MCG/ML AMPUL IM (08:05)
[2024-01-31] MEDS: miSOPROStoL 200 MCG TABLET 1000 MCG PR (08:07)
--- NOTE | 2024-01-31 08:07 | P.PCNOB_ITS ---
Labor & Delivery Delivery date: 01/31/24 Delivery monitor: external FHT and internal uterine Route of delivery: vacuum extraction Indication for instrumentation: maternal exhaustion Episiotomy description: None L&D Laceration Description: Perineal - 2nd Degree Quantitative Blood Loss: 625 Anesthesia Type: Epidural Complications: Maternal fever hemorrhage Narrative: PROCEDURE: at 39w4d presented for IOL due to pre-eclampsia without severe features and was admitted to Labor and Delivery. The patient progressed through the 1st stage over 20.5 hours. She received cervidil followed by a ferrara catheter. After the ferrara catheter fell out, pitocin was initiated. ROM occured at 8:16 on 01/30/24 with clear fluid. Pain was controlled with an epidural. The patient progressed through the 2nd stage over 3 hours. After 2.5hrs of pushing with adequate but slow descent and a long induction, the pt was noted to be quite fatigued. Vacuum-assisted delivery was discussed, which the pt wished to proceed with. Patient was evaluated and noted to have adequate pain control. Patient counseled on risks/benefits/alternatives of vacuum assisted delivery. Risks were discussed and they included but were not limited to a need for an episiotomy, pressure maloney on the baby, lacerations to the baby's scalp/face, serious damage including skull fracture, the need to proceed with an abdominal procedure, , paralysis of the baby's arms and/or legs, neurological impairment of the baby. Alternatives would include CS or further pushing. Questions were answered and the patient verbalized an understanding and decided to proceed. Cervix completely dilated and maternal bladder emptied. Maternal pelvis was noted to be adequate. Vertex presentation in the OA position and +2 station. Moulding present, Caput minimal Vacuum cup of the Kiwi OmniC[employer] applied to the flexion point without difficulty and during contractions, pressure applied between 400-600 mmHg as indicated in the green zone of the pressure gauge. Infant delivered after 3 contractions with 9 pulls and 0 pop-offs over an intact perineum. Total duration of application of the vacuum was 9 minutes. The anterior shoulder and remainder of the infant was delivered without difficulty at 7:30am, with APGARs 9/9. The was delivered to maternal abdomen, and the cord cut and clamped after it stopped pulsating. was examined with no evidence of injury noted. The placenta delivered with gentle cord traction, and appeared complete. The perineum and vagina were inspected with 2nd degree perineal laceration repaired with 2-O Vicryl in the usual fashion. Pt had heavy bleeding after delivery, w ith intermittently poor uterine tone. This was controlled with manual extraction of clots, TXA, hemabate, pitocin, and rectal cytotec. Needle and sponge counts were correct.? The vagina was inspected and no items were left in situ. Rogelio was doing well with Mary, her , her , Javier, and mother and father at bedside. PREPROCEDURE DIAGNOSIS: Intrauterine at 40w0d Pre-eclampsia without severe features GBS negative RH positive Maternal fever POSTPROCEDURE DIAGNOSIS: Intrauterine at 40w0d, delivered Same as preprocedure Maternal exhaustion Vacuum-assisted vaginal delivery hemorrhage Sharon Baby 1: Infant gender: Female Presentation: vertex Position: Left Occiput Anterior Placenta delivery description: Spontaneous Cord Vessel Description: 3 Vessels score (1 min): 9 score (5 min): 9 weight: 8 lb 6.394 oz Plan for aftercare: Routine care and Other (continue A mpicillin/Gentamicin until 24hrs without fever)
[2024-01-31] MEDS: DIPHENOXYLATE/ATROP 2.5/0.025 TABLET 2 EACH PO (08:39)
[2024-01-31] MEDS: OXYTOCIN PREMIX 30 UNIT/500 ML PLAST..BAG 200 UNIT IV (09:40)
[2024-01-31] MEDS: DERMOPLAST SPRAY 20% 60 ML 1 SPRAY TOP (09:54)
[2024-01-31] MEDS: WITCH HAZEL/GLYCERIN PADS 1 EACH TOP (10:02)
[2024-01-31] MEDS: LANOLIN OINT 7 GM 1 APPLIC TOP (10:02)
[2024-01-31] MEDS: FERROUS SULFATE 325 MG TABLET PO (10:03)
[2024-01-31] MEDS: PRENATAL VIT,CALC/IRON/FOLIC 1 TABLET 1 TAB PO (10:03)
[2024-01-31] MEDS: OXYCODONE IR 5 MG TABLET PO (11:46)
[2024-01-31] MEDS: IBUPROFEN 600 MG TABLET PO ×2 (11:46→20:00)
[2024-01-31] MEDS: LACTATED RINGERS 1,000 ML 100 ML IV (14:56)
[2024-01-31 17:06] VITALS: TEMP 36.5
[2024-02-01] MEDS: IBUPROFEN 600 MG TABLET PO ×2 (02:16→08:22)
[2024-02-01] MEDS: AMPICILLIN 2,000 MG in SODIUM CHLORIDE 0.9% 100 ML 200 MG IV (05:32)
[2024-02-01] MEDS: ACETAMINOPHEN 325 MG TABLET 650 MG PO (05:32)
[2024-02-01 07:02] LABS: Add Manual Diff / Slide Review NO; Basophils Absolute Auto 100 /uL (0-100); Basophils Percent Auto 0.7 % (0-2); Eosinophils Absolute Auto 300 /uL (0-450); Eosinophils Percent Auto 1.5 % (2-4); Hematocrit 29.5 % (36-46); Hemoglobin 9.8 g/dL (12.0-16.0); Lymphocytes Absolute Auto 2200 /uL (1100-4500); Lymphocytes Percent Auto 11.7 % (25-40); Mean Corpuscular HGB Conc 33.4 % (30-36); Mean Corpuscular Hemoglobin 30.7 PG (26-34); Monocytes Absolute Auto 1100 /uL (0-900); Monocytes Percent Auto 5.8 % (3-14); Neutrophils Absolute Auto 15400 /uL (1500-7000); Neutrophils Percent Auto 80.3 % (50-75); Platelet Count 149 X10^3/uL (150-400); Red Blood Cell Count 3.21 X10^6/uL (4.0-5.2); Red Cell Distribution Width 15.8 % (11.6-14.8); White Blood Cell Count 19.1 X10^3/uL (4.5-11.0)
[2024-02-01] MEDS: GENTAMICIN IV (08:22)
[2024-02-01] MEDS: SODIUM CHLORIDE 0.9% IV (08:22)
[2024-02-01] MEDS: DOCUSATE 100 MG CAPSULE PO (08:23)
[2024-02-01] MEDS: FERROUS SULFATE 325 MG TABLET PO (08:23)
[2024-02-01] MEDS: PRENATAL VIT,CALC/IRON/FOLIC 1 TABLET 1 TAB PO (08:23)
--- NOTE | 2024-02-01 09:29 | PM.OBDS.1 ---
Discharge Providers Provider Date of admission: 01/28/24 15:56 Discharge Date: 02/01/24 Primary care physician: Oly AVILA Provider Consults: 02/01/24 08:06 Consult to [employer] Routine Comment: Discharge provider: Pattie Ornelas MD Summary Hospital Course Date Patient Seen: 02/01/24 Diagnoses: Intrauterine at 40w0d Pre-eclampsia without severe features GBS negative RH positive Maternal fever Maternal exhaustion Vacuum-assisted vaginal delivery hemorrhage Hospital Course: The pt was admitted for IOL due to pre-eclampsia without severe features. She received cervidil followed by a ferrara catheter. Ferrara fell out, and pitocin was initiated. AROM was performed with clear fluid present. The pt developed a persistent fever, but no other signs of chorio. She was initiated on ampicillin and gentamicin for maternal fever. The pt progressed to complete. She pushed for 2.5hrs and due to maternal exhaustion the decision was made to proceed with vacuum-assisted delivery. The pt delivered a viable baby girl. After delivery, heavy bleeding was controlled with manual extraction of clots, pitocin, TXA, hemabate, and rectal cytotec. , there were no additional complications. At the time of discharge she was voiding, ambulating, and passing flatus without difficulty. She had been afebrile for 24hrs with antibiotics continued for that time period. Her lochia was decreasing appropriately. Her pain was well controlled. She will f/u in 6 weeks for check. She would like condoms for contraception. Peripartum Data Infant Delivery Method: Assisted Delivery (vacuum-assisted vaginal delivery) Laceration Description: Perineal - 2nd Degree Episiotomy description: None Procedures: Vacuum-assisted vaginal delivery complications: none 1: Gender: Female Disposition of : home Status at Discharge Cognitive/behavioral status at discharge: oriented Functional status at discharge: independent ambulation Overall status at discharge: patient is progressing back to baseline Time Spent with Patient Time attestation: Total time spent providing and/or coordinating discharge services: Objective Labs 02/01/24 06:52 01/29/24 20:16 Labs: Laboratory Results - last 24 hr 02/01/24 06:52 WBC 19.1 H RBC 3.21 L Hgb 9.8 L Hct 29.5 L MCV 92.0 MCH 30.7 MCHC 33.4 RDW 15.8 H Plt Count 149 L Neut % (Auto) 80.3 H Lymph % (Auto) 11.7 L Frederick % (Auto) 5.8 Eos % (Auto) 1.5 L Baso % (Auto) 0.7 Neut # (Auto) 76572 H Lymph # (Auto) 2200 Frederick # (Auto) 1100 H Eos # (Auto) 300 Baso # (Auto) 100 Exam Narrative Exam Narrative: Gen: NAD, sitting comfortably in bed, appears well CV: RRR, no murmurs Resp: clear to auscultation bilaterally Abd: soft, appropriately tender, fundus firm and below the umbilicus, nondistended Ext: no edema Discharge Plan Discharge Plan Patient Disposition: Home Discharge orders & Medications Prescriptions: New ferrous sulfate 325 mg (65 mg iron) Tablet 325 mg PO DAILY Qty: 30 0RF Continued PNV cmb#95-ferrous fumarate-FA [ Multivitamins] 28 mg iron- 800 mcg tablet 1 tab PO DAILY Qty: 90 1RF Discontinued cyclobenzaprine 5 mg tablet 5 mg PO BID PRN (Reason: muscle spasm) Qty: 20 0RF Follow up/Referrals: ProviderOly [Primary Care Provider] - Pattie Ornelas MD [Physician] - 6 Weeks (March 12, 2024 @ 1030am with Dr. Ornelas) Diet/Activity/Treatments Diet: Diet as Tolerated and Regular Skin/Wound/Dressing Care Report to your healthcare provider any signs of infection, such as:: chills, fever, increased pain and unusual drainage Visit Report/Discharge Packet Instructions: DI for Labor and Delivery, Vaginal Stand Alone Forms: Patient Portal/API, Stroke Signs & Symptoms Discharge Data Primary Care Provider: ProviderOly Discharges patient from system. Discharge Date/Time: 02/01/24 10:15
== END 2024-02-01 10:15 | disposition home or self-care (01) | DRG 806 ==
PROVIDERS: Admitting Provider Family Medicine; Referring Provider Family Medicine; Visit Provider Family Medicine
DX: O14.04 Mild to moderate pre-eclampsia, complicating childbirth (principal); O75.2 Pyrexia during labor, not elsewhere classified; O72.0 Third-stage hemorrhage; O70.1 Second degree perineal laceration during delivery; O75.81 Maternal exhaustion complicating labor and delivery; Z37.0 Single live birth; Z3A.39 39 weeks gestation of pregnancy
CPT/HCPCS: 36415; 36592; 59025; 59050; 59200; 80053; 82570; 84156; 85025; 86850; 86900; 86901; G0378; G0379; J0290; J2590; J3010; S0191

== ENCOUNTER → 2024-03-10 11:02 | Outpatient (CLI) | payer OTHER, SELFPAY ==
[2024-03-10 12:11] LABS: Add Manual Diff / Slide Review NO; Basophils Absolute Auto 100 /uL (0-100); Basophils Percent Auto 0.5 % (0-2); Eosinophils Absolute Auto 100 /uL (0-450); Eosinophils Percent Auto 1.1 % (2-4); Hematocrit 40.6 % (36-46); Hemoglobin 13.7 g/dL (12.0-16.0); Lymphocytes Absolute Auto 1900 /uL (1100-4500); Lymphocytes Percent Auto 16.7 % (25-40); Mean Corpuscular HGB Conc 33.7 % (30-36); Mean Corpuscular Hemoglobin 29.6 PG (26-34); Mean Corpuscular Volume 87.6 fL (80-100); Monocytes Absolute Auto 700 /uL (0-900); Monocytes Percent Auto 6.3 % (3-14); Neutrophils Absolute Auto 8600 /uL (1500-7000); Neutrophils Percent Auto 75.4 % (50-75); Platelet Count 396 X10^3/uL (150-400); Red Blood Cell Count 4.64 X10^6/uL (4.0-5.2); Red Cell Distribution Width 14.9 % (11.6-14.8); White Blood Cell Count 11.4 X10^3/uL (4.5-11.0)
[2024-03-10 13:12] LABS: Prolactin 66.1 ng/mL (3.0-18.6)
[2024-03-10 13:26] LABS: TSH w/ Reflex to FT4 1.42 uIU/mL (0.47-4.68)
[2024-03-10 13:28] LABS: Ferritin 43 ng/mL (6-137)
== END ==
PROVIDERS: Referring Provider Family Medicine; Visit Provider Family Medicine
DX: O92.4 Hypogalactia (principal)
CPT/HCPCS: 36415; 82728; 84146; 84443; 85025

== ENCOUNTER 2025-04-02 19:50 | Emergency (ER) | payer OTHER, SELFPAY ==
--- NOTE | 2025-04-02 19:59 | EKG_ITS ---
[facility] [address], [place] [address] Test Date: 2025-04-02 Pat Name: Rogelio Pratt Department: [facility] Room: Gender: Female [employer] Att[employer]: : 1995 Requested By: Order Number: [id number] Reading MD: Stan Garza MD Measurements Intervals Buhler Rate: 89 P: 73 MI: 150 QRS: 116 QRSD: 76 T: 15 QT: 330 QTc: 401 Interpretive Statements Normal sinus rhythm Right atrial enlargement Right axis deviation Pulmonary disease pattern Nonspecific T wave abnormality NO PRIOR TRACING Electronically Signed On 04-03-2025 7:20:40 PDT by Stan Garza MD
[2025-04-02 20:01] VITALS: BP 112/76; PULSE 84; RESP 14; TEMP 36.6; O2SAT 99; BMI 24.1
--- NOTE | 2025-04-02 21:09 | DI.RAD.S_ITS ---
PROCEDURE: XR CHEST 1V INDICATIONS: Chest Pain TECHNIQUE: One view of the chest was acquired. COMPARISON: None. FINDINGS: Surgical changes and devices: None. Lungs and pleura: Lungs are clear. No pleural effusions or pneumothorax. Mediastinum: Mediastinal contours appear normal. Heart size is normal. Bones and chest wall: No suspicious bony lesions. Overlying soft tissues appear unremarkable. IMPRESSION: No acute cardiopulmonary abnormality is seen. Dictated by: Omari Martinez M.D. on 04/02/2025 at 21:43 Approved by: Omari Martinez M.D. on 04/02/2025 at 21:44
[2025-04-02] MEDS: ASPIRIN 81 MG CHEW TAB 324 MG PO (21:13)
[2025-04-02 21:33] LABS: Add Manual Diff / Slide Review NO; Hematocrit 41.7 % (36-46); Hemoglobin 14.5 g/dL (12.0-16.0); Lymphocytes Absolute Auto 2000 /uL (1100-4500); Mean Corpuscular HGB Conc 34.7 % (30-36); Mean Corpuscular Hemoglobin 29.2 PG (26-34); Mean Corpuscular Volume 84.1 fL (80-100); Platelet Count 291 X10^3/uL (150-400)
[2025-04-02 21:40] LABS: INR 1.0 (0.9-1.3); Prothrombin Time 11.5 SECONDS (9.4-12.5)
[2025-04-02 21:42] LABS: PTT Partial Thromboplastin Tim 32 SECONDS (25.1-36.5)
[2025-04-02 21:53] LABS: Alanine Aminotransferase 21 IU/L (<35); Albumin 4.5 g/dL (3.5-5.0); Albumin Globulin Ratio 1.4 (1.0-2.8); Alkaline Phosphatase 91 U/L (38-126); Blood Urea Nitrogen 13 mg/dL (7-17); Calcium 9.9 mg/dL (8.4-10.2); Carbon Dioxide 26 mmol/L (22-32); Chloride 102 mmol/L (98-107); Creatine Kinase 72 U/L (30-135); Estimated Glomerular Filt Rate > 60 mL/min (>60); Globulin 3.3 g/dL (1.7-4.1); Glucose 107 mg/dL (70-99); HEMOLYSIS < 15 (0-50); Lipase 104 U/L (23-300); Magnesium 2.1 mg/dL (1.6-2.3); Potassium 4.0 mmol/L (3.4-5.1); Sodium 136 mmol/L (137-145); Total Protein 7.8 g/dL (6.3-8.2)
[2025-04-02 22:05] LABS: NT-proBNP (BNP-Adult 18+) < 20 pg/mL (<125); Troponin I < 0.012 ng/mL (0.01-0.034)
[2025-04-02 22:21] LABS: Influenza A - CEPHEID Flu A NEGATIVE (NEGATIVE); Influenza B - CEPHEID Flu B NEGATIVE (NEGATIVE)
[2025-04-02 22:24] LABS: COVID-19 CEPHEID 4-PLEX PCR Negative (Negative)
[2025-04-03 00:54] VITALS: BP 124/77; PULSE 56; O2SAT 98
[2025-04-03 01:00] VITALS: BP 118/71; PULSE 56; RESP 17; O2SAT 97
[2025-04-03 01:26] LABS: Troponin I < 0.012 ng/mL (0.01-0.034)
[2025-04-03 01:30] VITALS: BP 123/65; PULSE 54; RESP 14; O2SAT 97
--- NOTE | 2025-04-03 01:51 | ED.CHESTPAIN ---
HPI - Chest Pain General Chief Complaint: Chest Pain Stated Complaint: chest pain N/V SHERMAN SOB Time Seen by Provider: 04/03/25 01:49 Source: patient, RN notes reviewed and old records reviewed Mode of arrival: Ambulatory Limitations: no limitations Limitations: no limitations History of Present Illness HPI narrative: 29-year-old female history of migraines receives Botox injections presents with a complaint of chest discomfort described as substernal radiating towards her back started morning was persistent until it went away while she was in the waiting room. Patient states nothing seemed to make it better or worse other than exhaling. She states activity did not make it worse food did not make it worse she denies any shortness of breath. She denies any radiation to her neck arms or belly. She did have some nausea she vomited 1 time. She denies any issues with bowel movements or urination. No new swelling in extremities no syncope or lightheadedness. Has not had similar symptoms in the past. Denies any daily medications, no prior surgeries. No drug allergies. Uses tobacco denies any alcohol or recreational drugs. No estrogen or oral contraceptives. Denies any family history of cardiac, pulmonary embolic history. No long distance travel. Notes dad has a history of hypertension. Patient states pain has not resolved Related Data Previous Rx's ?Medication ?Instructions ?Recorded vit no.95-ferrous 1 tab PO DAILY #90 tabs 08/17/23 fumarate 28 mg-folic acid 800 mcg tablet ( Multivitamins) ferrous sulfate 325 mg (65 mg 325 mg PO DAILY #30 tabs 02/01/24 iron) tablet OXYTOCIN 10 U/SPRAY See Rx Instructions intranasal 03/12/24 .COMPLEX #5 mL Allergies Allergy/AdvReac Type Severity Reaction Status Date / Time No Known Drug Allergies Allergy Verified 01/28/24 17:33 Review of Systems Review of Systems ROS Unobtainable: All systems reviewed & are unremarkable except as noted in HPI and below Patient History Medical History IUD complication (~08/2022) Dental crown present Migraine without aura Surgical History [place] teeth extracted Family History Mother Diabetes mellitus Father Hypertension Grandmother Ovarian cancer Family/Other Diabetes mellitus Social History marital status: number of children: 0 household members: spouse lives independently: Yes caregiver/support person: No housing: other pets and animals: Yes (1 large dog) education level: college occupational status: employed current occupational exposures/hazards: No (not since learning of ) special karen needs: No travel history: recent seatbelt use: always water heater temp set < 120 deg: Yes working smoke detector in home: Yes fire extinguisher in home: Yes carbon monox detector in home: Yes firearms in home: Yes firearms unloaded and locked: Yes do you feel safe at home: Yes Smoking Status: Current every day smoker Tobacco: How many years used: 3 second hand exposure: No alcohol intake: never substance use type: does not use during the past year weight has: remained stable well-balanced diet: rarely or never daily servings fruits/ve-1 caffeine: No Type(s) of exercise: walking and weight lifting Smoking Status: Current every day smoker tobacco type: vaping Exam Narrative Exam Narrative: GENERAL: Alert and oriented x three, female in mild distress HEENT: Head normocephalic, atraumatic, EOMI, pupils reactive, face symmetric, moist mucous membranes NECK: Supple, full range of motion CARDIOVASCULAR: Regular rate and rhythm without murmurs, rubs or gallops. No reproducible pain on palpation. No edema. No JVD. RESPIRATORY: Breath sounds equal bilaterally, no wheezes rales or rhonchi. No tachypnea or accessory muscle use ABDOMEN: Soft, nontender. Normoactive bowel sounds all 4 quadrants. No guarding or rebound, rigidity, no mass : No CVA tenderness EXTREMITIES: Normal range of motion, no clubbing or edema. Neurovascularly intact NEUROLOGICAL: Cranial nerves II through XII grossly intact. Moving all extremities SKIN: Warm, dry, no petechiae, no rashes or lesions. Initial Vital Signs Initial Vital Signs: Vital Signs Temperature 97.9 F 04/02/25 20:01 Pulse Rate 84 04/02/25 20:01 Respiratory Rate 14 04/02/25 20:01 Blood Pressure 112/76 04/02/25 20:01 Pulse Oximetry 99 04/02/25 20:01 Oxygen Delivery Method Room Air 04/02/25 20:01 Scores HEART Score Heart Score history: Slightly Suspicious Heart Score EKG: Non-Specific repolarization disturbance Heart Score Age: < 45 years old Heart Score risk factors: No known risk factors Heart Score troponin: < or = to normal limit Heart Score Total: 1 PERC Score Age greater than or equal to 50 years: No Heart rate greater than or equal to 100 bpm: No Room Air O2 Sat less than 95%: No Unilateral leg swelling: No Recent trauma or surgery: No Hemoptysis: No Prior PE or DVT: No Hormone Use: No Total PERC Score: 0 Course Orders Ordered: ED Orders 04/02/25 21:21 Complete Blood Count AUTO DIFF Stat Comprehensive Metabolic Panel Stat Covid-19 + FLU A/B + RSV - PCR Stat Lipase Stat Magnesium Stat NT-proBNP (BNP-Adult 18+) Stat PTT Partial Thromboplastin [place] Stat Prothrombin Time INR Stat Troponin & CK Cardiac Panel Stat 04/03/25 01:00 Trop I [Troponin I] Stat Discontinued Medications Aspirin (Aspirin 81 Mg Chew Tab) 324 mg PO NOW ONE Stop: 04/02/25 21:10 Last Admin: 04/02/25 21:13 Dose: 324 mg Documented By: LS Vital Signs Vital signs: Vital Signs - 8 hr 04/03/25 00:54 04/03/25 00:54 04/03/25 01:00 Pulse Rate 56 L Respiratory Rate Blood Pressure 124/77 118/71 Pulse Oximetry 98 Oxygen Delivery Method Room Air 04/03/25 01:00 04/03/25 01:30 04/03/25 01:30 Pulse Rate 56 L 54 L Respiratory Rate 17 14 Blood Pressure 123/65 Pulse Oximetry 97 97 Oxygen Delivery Method Room Air Room Air 04/03/25 02:00 04/03/25 02:00 04/03/25 02:30 Pulse Rate 61 70 Respiratory Rate 16 19 Blood Pressure 118/70 Pulse Oximetry 97 97 Oxygen Delivery Method Room Air Room Air 04/03/25 02:30 Pulse Rate Respiratory Rate Blood Pressure 113/68 Pulse Oximetry Oxygen Delivery Method MDM - Chest Pain Lab Data 04/02/25 21:21 04/02/25 21:21 Labs: Lab Results 04/02/25 04/03/25 Range/Units 21:21 01:00 WBC 10.9 (4.5-11.0) X10^3/uL RBC 4.96 (4.0-5.2) X10^6/uL Hgb 14.5 (12.0-16.0) g/dL Hct 41.7 (36-46) % MCV 84.1 (80-100) fL MCH 29.2 (26-34) PG MCHC 34.7 (30-36) % RDW 13.1 (11.6-14.8) % Plt Count 291 (150-400) X10^3/uL Neut % (Auto) 76.0 H (50-75) % Lymph % (Auto) 18.5 L (25-40) % [place] % (Auto) 4.5 (3-14) % Eos % (Auto) 0.5 L (2-4) % Baso % (Auto) 0.5 (0-2) % Neut # (Auto) 8300 H (7513-2245) /uL Lymph # (Auto) 2000 (2177-7554) /uL [place] # (Auto) 500 (0-900) /uL Eos # (Auto) 100 (0-450) /uL Baso # (Auto) 100 (0-100) /uL PT 11.5 (9.4-12.5) SECONDS INR 1.0 (0.9-1.3) APTT 32 (25.1-36.5) SECONDS Sodium 136 L (137-145) mmol/L Potassium 4.0 (3.4-5.1) mmol/L Chloride 102 (98-107) mmol/L Carbon Dioxide 26 (22-32) mmol/L BUN 13 (7-17) mg/dL Creatinine 0.82 (0.52-1.04) mg/dL Estimated GFR > 60 (>60) mL/min BUN/Creatinine Ratio 15.9 (6-22) Glucose 107 H (70-99) mg/dL Calcium 9.9 (8.4-10.2) mg/dL Magnesium 2.1 (1.6-2.3) mg/dL Total Bilirubin 0.2 (0.2-1.3) mg/dL AST 24 (14-36) IU/L ALT 21 (<35) IU/L Alkaline Phosphatase 91 (38-126) U/L Total Creatine Kinase 72 (30-135) U/L Troponin I < 0.012 < 0.012 (0.01-0.034) ng/mL NT-Pro-B Natriuret Pep < 20 (<125) pg/mL Total Protein 7.8 (6.3-8.2) g/dL Albumin 4.5 (3.5-5.0) g/dL Globulin 3.3 (1.7-4.1) g/dL Albumin/Globulin Ratio 1.4 (1.0-2.8) Lipase 104 (23-300) U/L SARS-CoV-2 (PCR) Negative (Negative) Influenza A (RT-PCR) Flu a negative (NEGATIVE) Influenza B (RT-PCR) Flu b negative (NEGATIVE) RSV (PCR) Negative (Negative) MDM Narrative Medical decision making narrative: Labs show white count of 10.9 hemoglobin of 14 platelets of 291, coags are negative sodium is 136 electrolytes BUN creatinine glucose is 107. LFTs are negative lipase is 104 troponins less than 0.012 and repeat is less than 0.012 with a BNP of less than 20. COVID/influenza/RSV is negative. Chest xray is negative. Sinus rhythm, right atrial enlargement right axis deviation, rate 89 AK 150 QRS is 76 QTC of 401. No acute ST changes Discharge Plan Departure Patient Disposition: Home Clinical Impression: Chest pain Instructions: DI for Chest Pain Activity Restrictions/Additional Instructions: Follow up with your physician for recheck. Please return if you develop recurrent symptoms, lightheadedness or passing out, persistent chest pain, new shortness of breath, coughing up blood, any new swelling in extremities, persistent vomiting or other new or concerning changes. Prescriptions: No Action PNV no.95-ferrous fumarate-FA [ Multivitamins] 28 mg iron- 800 mcg tablet 1 tab PO DAILY Qty: 90 1RF OXYTOCIN 10 U/SPRAY solution See Rx Instructions intranasal .COMPLEX MDD 12 Qty: 5 0RF Rx Instructions: 2-5 SPRAYS intranasally 5 MINUTES PRIOR TO BREAST FEEDING (UP TO 12 TIMES DAILY); ALTERNATE NOSTRILS FOR EACH DOSE. ferrous sulfate 325 mg (65 mg iron) Tablet 325 mg PO DAILY Qty: 30 0RF Referrals: [facility] [Primary Care Provider, Family Practice] Stand Alone Forms: Patient Portal/API, Work Release Note
[2025-04-03 02:00] VITALS: BP 118/70; PULSE 61; RESP 16; O2SAT 97
[2025-04-03 02:30] VITALS: BP 113/68; PULSE 70; RESP 19; O2SAT 97
== END 2025-04-03 02:47 | disposition home or self-care (01) ==
PROVIDERS: Emergency Provider Emergency Medicine
DX: R07.9 Chest pain, unspecified (principal)
CPT/HCPCS: 36415; 71045; 80053; 82550; 83690; 83735; 83880; 84484; 85025; 85610; 85730; 87637; 93005; 99284